=== PATIENT | male | born 1980 | race Caucasian/White ===

== ENCOUNTER 2017-07-26 17:31 | Emergency (ER) | payer BC ==
--- NOTE | 2017-07-26 17:52 | EDM.PDOC ---
ED HPI GENERAL MEDICAL PROBLEM - General Chief Complaint: Skin Complaint Stated Complaint: PT HAS STAFF INFECTION Time Seen by Provider: 07/26/17 17:52 Source of Information: Reports: Patient History Limitations: Reports: No Limitations - History of Present Illness INITIAL COMMENTS - FREE TEXT/NARRATIVE: HISTORY AND PHYSICAL: 36-year-old male presenting with infection on his below his right nare History of Present Illness: []Patient fell forward onto his face tripping over palates 5 days ago Patient was seen in the clinic yesterday given 2 shots and clindamycin and Bactroban ointment Review of Systems: As per history of present illness and below otherwise all systems reviewed and negative. Past medical history: As per history of present illness and as reviewed below otherwise noncontributory. Surgical history: As per history of present illness and as reviewed below otherwise noncontributory. Social history: No reported history of drug or alcohol abuse. Family history: As per history of present illness and as reviewed below otherwise noncontributory. Physical exam: Alert and oriented male answering questions appropriately in full sentences no shortness of breath noted. Skin with schmitt colored exudate at the site of injury mild edema present tender upon palpation HEENT: Atraumatic, normocehpalic, pupils reactive, negative for conjunctival pallor or scleral icterus, mucous membranes moist, throat clear, neck supple, nontender, trachea midline. Lungs: Clear to auscultation, breath sounds equal bilaterally, chest non tender. Heart: S1S2, regular, negative for clicks, rubs, or JVD. Abdomen: Soft, nondistended, nontender. Negative for masses or hepatossplenmegaly. Negative for costovertebral tenderness. Pelvis: Stable nontender. Genitourinary: Deferred. Rectal: Deferred Extremities: Atraumatic, negative for cords or calf pain. Neurovascular unremarkable. Neuro: Awake, alert, oriented. Cranial nerves II through XII unremarkable. Cerebellum unremarkable. Motor and sensory unremarkable throughout. Exam nonfocal. Area was cleansed with Hibiclens and then sterile water Raised area noted mild erythema and edema, schmitt color exudate. Bactroban ointment reapplied Discussed with patient that he is on the correct medications this will take more than 24 hours to heal Diagnostics: [] Therapeutics: [] Impression: []Superficial infection below right near Plan: []Discharged home Continue with current medications Follow-up with primary care Friday Definitive disposition and diagnosis as appropriate pending reevaluation and review of above. Onset: Gradual R Upper Lip Pain Score (Numeric/FACES): 9 - Related Data Allergies Allergy/AdvReac Type Severity Reaction Status Date / Time No Known Allergies Allergy Verified 07/26/17 17:47 Home Meds: Home Meds . [No Known Home Meds] 07/26/17 [History] Clindamycin HCl 300 mg PO TID 07/26/17 [History] Mupirocin 1 applic TOP TID 07/26/17 [History] ED ROS GENERAL - Review of Systems Review Of Systems: ROS reveals no pertinent complaints other than HPI. ED EXAM, SKIN/RASH Exam: See Below (see dictation) Course - Vital Signs Last Recorded V/S: Last Vital Signs Temp 37.1 C 07/26/17 17:43 Pulse 95 07/26/17 17:43 Resp 16 07/26/17 17:43 BP 151/100 H 07/26/17 17:43 Pulse Ox 96 07/26/17 17:43 Departure - Departure Time of Disposition: 18:14 Disposition: Home, Self-Care 01 Condition: Good Clinical Impression: Cellulitis Qualifiers: Site of cellulitis: face Qualified Code(s): L03.211 - Cellulitis of face - Discharge Information Instructions: Cellulitis, Adult Forms: ED Department Discharge Additional Instructions: The following information is given to patients seen in the emergency department who are being discharged to home. This information is to outline your options for follow-up care. We provide all patients seen in our emergency department with a follow-up referral. The need for follow-up, as well as the timing and circumstances, are variable depending upon the specifics of your emergency department visit. If you don't have a primary care physician on staff, we will provide you with a referral. We always advise you to contact your personal physician following an emergency department visit to inform them of the circumstance of the visit and for follow-up with them and/or the need for any referrals to a consulting specialist. The emergency department will also refer you to a specialist when appropriate. This referral assures that you have the opportunity for followup care with a specialist. All of these measure are taken in an effort to provide you with optimal care, which includes your followup. Under all circumstances we always encourage you to contact your private physician who remains a resource for coordinating your care. When calling for followup care, please make the office aware that this follow-up is from your recent emergency room visit. If for any reason you are refused follow-up, please contact the [facility] emergency department at and asked to speak to the emergency department charge nurse. Continue with your current medications Follow-up with your primary care provider Friday (in 2 days)
== END 2017-07-26 18:30 | disposition home or self-care (01) ==
LOC: MW.ED 17:31
DX: L03.211 Cellulitis of face (principal)
CPT/HCPCS: 99282